=== PATIENT | male | born 1960 | race Caucasian/White ===

== ENCOUNTER 2022-06-01 10:42 | Outpatient (CLI) | payer OTHER, SELFPAY ==
[2022-06-01 17:50] LABS: Albumin* 4.8 g/dL (3.3-5.0); Chloride* 105 mmol/L (96-114)
[2022-06-01 17:51] LABS: Potassium* 4.8 mmol/L (3.6-5.1); Sodium* 139 mmol/L (135-149)
[2022-06-01 17:53] LABS: Carbon Dioxide* 29 mmol/L (20-32); Cholesterol* 197 mg/dL (90-199)
[2022-06-01 17:54] LABS: Alanine Aminotransferase* 32 U/L (4-50); Alkaline Phosphatase* 51 U/L (40-150); Aspartate Amino Transferase* 42 U/L (12-35); Bilirubin Total* 1.8 mg/dL (0.1-1.5); Blood Urea Nitrogen* 21 mg/dL (7-30); Calcium* 9.5 mg/dL (8.4-10.6); Creatinine* 1.2 mg/dL (0.5-1.5); Estimated Glomerular Filt Rate 69 ml/min; Glucose* 99 mg/dL (60-115); Total Protein* 7.7 g/dL (6.0-8.3); Triglycerides* 101 mg/dL (40-149)
[2022-06-01 17:55] LABS: HDL Cholesterol* 64 mg/dL (>=40); LDL Cholesterol Calculated 113 mg/dL (<100)
[2022-06-01 18:22] LABS: PSA Screen* 0.27 ng/mL (0.10-4.00)
== END 2022-06-01 10:43 | disposition home or self-care (01) ==
PROVIDERS: PCP Family Medicine; Visit Provider Family Medicine
DX: Z00.00 Encounter for general adult medical examination without abnormal findings (principal); E78.00 Pure hypercholesterolemia, unspecified; R79.89 Other specified abnormal findings of blood chemistry; Z12.5 Encounter for screening for malignant neoplasm of prostate
CPT/HCPCS: 80053; 80061; 84153

== ENCOUNTER 2022-06-21 07:41 | Day surgery (SDC) | payer OTHER, SELFPAY ==
[2022-06-21] VITALS (15 sets, daily range): BP systolic 101–122; BP diastolic 66–89; PULSE 63–83; RESP 12–16; TEMP 36.3–36.4; O2SAT 93–100; BMI 28.3
[2022-06-21] MEDS: SODIUM CHLORIDE 0.9 % (FLUSH) 10 ML SYRINGE IVF (08:15)
[2022-06-21] MEDS: LACTATED RINGERS 1000 ML 1,000 ML 100 ML IV ×2 (08:15→10:04)
--- NOTE | 2022-06-21 08:30 | SUR.PREOP ---
HOME COVID NEGATIVE.
[2022-06-21] MEDS: MIDAZOLAM HCL 1 MG/ML inj IVP (08:40)
[2022-06-21] MEDS: fentaNYL 100 MCG/2 ML inj IVP (08:40)
--- NOTE | 2022-06-21 08:45 | SUR.PREOP ---
TIME?OUT:?0840 PT/RN/MDA?VERIFICATION?OF?SURGICAL?SITE,?PROCEDURE,?AND?CONSENT OBTAINED?PRIOR?TO?INVASIVE?PROCEDURE.
--- NOTE | 2022-06-21 08:53 | W.ANESCHARGE ---
Anesthesia Charges Start Date/Time Anesthesia Start Date: 06/21/22 Anesthesia Start Time: 08:59 Stop Date/Time Anesthesia Stop Date: 06/21/22 Anesthesia Stop Time: 11:03 Summary Emergency: No
[2022-06-21] MEDS: EPINEPHrine 1 MG in SODIUM CHLORIDE IRRIG SOLUTION 3,000 ML 9003 MG IRRIGATION ×3 (08:59→09:30)
[2022-06-21] MEDS: CEFAZOLIN 2 GM in 0.9 % SODIUM CHLORIDE Mini-bag 100 ML IVPB (09:11)
--- NOTE | 2022-06-21 10:34 | P.ORPRC_ITS ---
Procedure Note Date of procedure: 06/21/22 Procedure: PREOPERATIVE DIAGNOSES: 1. Right shoulder rotator cuff tear-upper border subscapularis 2. Right shoulder long head of biceps high-grade partial-thickness tearing POSTOPERATIVE DIAGNOSES: 1. Right shoulder rotator cuff tear-upper border subscapularis 2. Right shoulder long head of biceps high-grade partial-thickness tearing 3. Right shoulder anterior and superior labral tearing. NAME OF OPERATION: 1. Right shoulder arthroscopic rotator cuff repair-upper border subscapularis. 2. Right shoulder open subpectoral biceps tenodesis 3. Right shoulder arthroscopic limited glenohumeral debridement SURGEON: David Ramirez MD METHODS ANALYST DATA PROCESSING: Denis Delcid PA-C. Of note, a skilled maintenance assistant was critical for this case to aide in patient positioning, suture manipulation, arm positioning, instrument positioning, and closure. ANESTHESIA: General plus preoperative supraclavicular block. EBL: Less than 50 mL IMPLANTS: Arthrex 4.75 mm BioComposite SwiveLock suture anchor (x1); 5.5 x 15 mm BioComposite tenodesis screw (x1) COMPLICATIONS: None evident INDICATIONS: The patient is a pleasant, 62-year-old male who has experienced right shoulder pain that has been increasing in recent time. Physical exam and imaging were consistent with a rotator cuff tear. Given their findings, as well as the weakness and pain, and inadequate response to nonoperative management, recommendation was made for surgery. FINDINGS: Exam under anesthesia revealed stable shoulder with excellent range of motion. The diagnostic arthroscopy revealed grade 2 chondromalacia glenoid. Relatively healthy articular cartilage humeral head. The Subscapularis tendon was torn from its upper border with mild retraction. The long head of the biceps tendon was torn high-grade partial-thickness manner in subluxed out of the bicipital groove. The superior rotator cuff tendon was found to be with only low-grade partial-thickness tearing on the deep surface. Probing did not prove poor integrity but rather had good integrity to the rest the tissue. The labrum was degeneratively frayed in the anterior and superior aspects. No loose bodies were identified within the pouch or subscapularis recess. PROCEDURE: Following a thorough discussion of risks, benefits, and alternatives, consent was obtained and the right shoulder was marked. The patient was brought to the operating room and placed supine on the operating table. Induction of anesthesia was completed after preoperative supraclavicular block was administered in preop holding. Appropriate time out was performed identifying proper patient, site, and procedure. 2 g IV Ancef was administered within 1 hour of incision preoperatively. The right upper extremity was prepped and draped in the appropriate sterile fashion using ChloraPrep prep. This was after the patient was positioned in the beach chair with their head in neutral alignment and all bony prominences well padded. The shoulder was insufflated with 20mL of normal saline via an 18g spinal needle from a posterior approach. An 11 blade skin incision allowed a blunt trochar to be inserted and diagnostic arthroscopy to be performed with the findings as noted above. An anterior portal was established with an outside in technique. This allowed the probe to be inserted and confirm the diagnostic arthroscopic findings. The shaver was then inserted and allowed debridement of the anterior and superior labrum. Following this, the upper border subscapularis was repaired after debriding the lesser tuberosity with the shaver and Offerman cautery. Subscapularis was captured in horizontal mattress fashion with a fiber tape sut ure. The tails were brought to a single anchor in the lesser tuberosity with excellent reapproximation of the subscap tendon and good excursion/tension. Thereafter, attention was turned to the open subpectoral biceps tenodesis. The biceps was tagged intra-articularly with a FiberWire suture. It was cut at the biceps origin. The stump was debrided with a torpedo shaver. We then made a 3 cm incision in the anterior shoulder in line with the axillary crease. Sharp incision through skin and blunt dissection through subcutaneous tissue allowed identification of the pectoralis muscle. This was elevated proximally. The biceps tendon and bicipital groove were readily palpable and visualized. The tendon was retrieved out of this wound and the sutures that were previously tagged were confirmed that this was indeed the tendon. The tendon was whip station proximally 3.5-4 cm from the musculotendinous junction. Excellent security of the tendon achieved. The tendon measured approximately 5 mm in diameter. A guide pin was 1st placed within the bicipital groove at the level near the superior pectoralis where a soft tissue arc could readily be palpated. A 6 mm drill was then over drilled. The wound was thoroughly irrigated normal saline and the bone removed. The biceps was then dunked with the tenodesis tower truck driver in the BioComposite tenodesis screw placed with excellent fixation of the tendon. 1 of the tails was brought through the tendon again for added security and tied. Thorough irrigation again performed. We then went into the subacromial space. A thorough bursectomy was performed and further inspection and palpation of the supraspinatus and infraspinatus was undertaken. The tendon was found to be intact without compromise. No high- grade partial-thickness or full-thickness tearing evident. No further rotator cuff tearing was needed beyond the subscapularis. The shoulder was placed through range of motion and found to be stable. The rotator cuff was re-probed and found to be stable. Instruments were removed. Excess fluid was drained, closure performed with 4-0 Monocryl and Steri-Strips. Dressings were applied. Sling was applied. The patient was awoken from anesthesia and transferred to the PACU in stable condition. A skilled maintenance assistant was critical for this case to aid in patient positioning, limb positioning, skill to manipulate arthroscopic instruments and camera, suture management, patient safety, and closure. PLAN: 1. Elbow, forearm, wrist and digit range of motion as tolerated. 2. Encouraged ice. 3. Percocet for pain as needed. 4. Sling at all times except for ROM and showering. 5. Follow up with PA visit in 1-2 weeks for wound check. Initiate physical therapy following that visit for passive range of motion. Initiate active assisted range of motion at 2 weeks. May do pendulums now.
--- NOTE | 2022-06-21 11:03 | W.ANESCHARGE ---
Anesthesia Charges Start Date/Time Anesthesia Start Date: 06/21/22 Anesthesia Start Time: 08:59 Stop Date/Time Anesthesia Stop Date: 06/21/22 Anesthesia Stop Time: 11:03
--- NOTE | 2022-06-21 12:24 | W.PM.NB ---
Nerve Block Nerve Block Time Seen by Provider: 08:50 Date Seen: 06/21/22 Type of block requested by surgeon for post-operative analgesia: supraclavicular Side: right Time out performed: Yes Verification of patient name: Yes Verification of date of : Yes Site marking: site marked Name of person performing procedure: Bernardo Assistants, if any: George Continuous monitoring Was continuous monitoring of O2 sat, B/P, quality assurance monitor, recorded every 15 minutes?: Yes Procedure Checklist: sterile prep, needles and gloves Ultrasound guided. Images saved: Yes Medications given in 5ml increments after negative aspiration: Ropivicaine %: 0.5 mL: 20 Needle gauge: 22 Decadron (mg): 10 Precedex (mcg): 25 Patient tolerated procedure well: Yes Block Charges Block Charge (with Pro Fee): Brachial Plexus Use of Ultrasound Machine for Block: Yes- US Guidance/pain block
== END 2022-06-21 12:35 | disposition home or self-care (01) ==
PROVIDERS: PCP Family Medicine; Visit Provider Orthopaedic Surgery Sports Medicine
PROC: (CPT 29805; principal; 2022-06-21 09:30)
DX: M75.101 Unspecified rotator cuff tear or rupture of right shoulder, not specified as traumatic (principal); S46.121A Laceration of muscle, fascia and tendon of long head of biceps, right arm, initial encounter; S43.431A Superior glenoid labrum lesion of right shoulder, initial encounter; G89.18 Other acute postprocedural pain
CPT/HCPCS: 29827; 29822; 23430; 01630; 64415; 76942; C1713; J0171; J0330; J0690; J1100; J2250; J2370; J2405; J2704; J2795; J3010; J7120; L3670

== ENCOUNTER 2023-11-26 10:09 | Outpatient (CLI) | payer OTHER, SELFPAY | END 2023-11-26 10:10 | disposition home or self-care (01) | PROVIDERS: PCP Family Medicine; Visit Provider Family Medicine | DX: E78.00 Pure hypercholesterolemia, unspecified (principal); R79.89 Other specified abnormal findings of blood chemistry; Z12.5 Encounter for screening for malignant neoplasm of prostate | CPT/HCPCS: 80053; 80061; G0103 ==

== ENCOUNTER 2024-06-02 08:31 | Outpatient (CLI) | payer OTHER, SELFPAY ==
--- NOTE | 2024-06-02 09:00 | CRLHL7_ITS ---
For Patients: As a result of the Century Cures Act, medical imaging exams and procedure reports are released immediately into your electronic medical record. You may view this report before your referring provider. If you have questions, please contact your health care provider. INDICATION: Congestion. History of nasal polyps. TECHNIQUE: Noncontrast CT images of the paranasal sinuses. COMPARISON: None. FINDINGS: Severe left and moderately severe right maxillary sinus mucosal thickening. Small left maxillary sinus air-fluid level. The ethmoid infundibula are opacified. Severe left and moderately severe right frontal recess opacification. There is otherwise mild frontal sinus mucosal thickening. Moderate opacification of the ethmoid air cells. [id number]-[id number] sphenoid sinus mucosal thickening. The sphenoethmoidal recesses are opacified. Mild sinusoidal nasal septal deviation. Multiple tubular opacities within nasal cavity bilaterally. The mastoid air cells are clear. IMPRESSION: 1. Multiple tubular opacities within the bilateral nasal cavity, most compatible with polyps. 2. Severe left and moderately severe right maxillary sinus mucosal thickening. Small left maxillary sinus air-fluid level can be seen in the setting of acute sinusitis. Please note that all CT scans at this facility use dose modulation, iterative reconstruction, and/or weight-based dosing when appropriate to reduce radiation dose to as low as reasonably achievable. Dictated by Isaac Lee MD @ 06/02/2024 9:07:36 AM (Electronically Signed)
== END 2024-06-02 08:32 | disposition home or self-care (01) ==
LOC: CT 08:31
PROVIDERS: PCP Family Medicine; Visit Provider Family Medicine
DX: R09.81 Nasal congestion (principal); J32.0 Chronic maxillary sinusitis; J33.9 Nasal polyp, unspecified
CPT/HCPCS: 70486

== ENCOUNTER 2024-09-12 08:14 | Day surgery (SDC) | payer OTHER, SELFPAY ==
[2024-09-12] VITALS (11 sets, daily range): BP systolic 103–132; BP diastolic 65–82; PULSE 55–66; RESP 14–20; TEMP 36.3–36.6; O2SAT 95–99; BMI 28.5
[2024-09-12] MEDS: LACTATED RINGERS 1000 ML 1,000 ML 100 ML IV (09:00)
[2024-09-12] MEDS: SODIUM CHLORIDE 0.9 % (FLUSH) 10 ML SYRINGE IVF (09:04)
[2024-09-12] MEDS: OXYMETAZOLINE 0.05% NASAL SPRAY 2 SPRAY NOSTRIL-B (09:37)
[2024-09-12] MEDS: OXYMETAZOLINE (AFRIN) SOAK 1 EACH TOPICAL (10:12)
[2024-09-12] MEDS: BUPIVACAINE 0.5%/EPINEPHRINE 0.9 MG (30.9 ML) INJECTION (10:18)
[2024-09-12] MEDS: SILVER NITRATE APPLICATOR 1 EACH STICK..EA. TOPICAL (10:18)
[2024-09-12] MEDS: MUPIROCIN 1 GM PACKET 1 APPLIC TOPICAL (10:21)
--- NOTE | 2024-09-12 10:25 | W.PM.ENTPROC ---
Procedure Note Date of procedure: 09/12/24 Procedure: Preop diagnosis bilateral nasal polyps, bilateral inferior turbinate hypertrophy, nasal obstruction Postoperative diagnosis same Procedure endoscopic bilateral nasal polypectomy, endoscopic submucous partial resection inferior turbinates Under general trach anesthesia patient was prepped draped usual fashion nose decongested injected. A stab incision was made anterior the right inferior turbinate a tunnel created the [place] dissector. The cut jake bone was outfractured and a conservative anterior submucous resection performed the small ethmoid forceps. The Coblation was used for hemostasis and to cauterize intramurally along the inferior 10%. This was repeated on the left side in identical fashion. On the right side there were polyps present on either side of the middle turbinate. These were removed with an ethmoid forceps without difficulty. There were similar findings on the left side and the polyps were removed in a similar fashion. The 0 degree scope was available for use throughout the procedure. The patient procedure well. Dissolvable packing and amend a single Merocel pack was placed on each side of the nose. The Merocel was coated in Bactroban. Blood loss was less than 10 mL. Surgeon: Hank Armstrong MD
--- NOTE | 2024-09-12 10:39 | P.ANES_ITS ---
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
--- NOTE | 2024-09-12 10:39 | W.ANESCHARGE ---
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
== END 2024-09-12 11:59 | disposition home or self-care (01) ==
LOC: OR 08:16
PROVIDERS: PCP Family Medicine; Visit Provider Otolaryngology
PROC: (CPT 31231; principal; 2024-09-12 09:45)
DX: J33.0 Polyp of nasal cavity (principal); J34.3 Hypertrophy of nasal turbinates; J34.89 Other specified disorders of nose and nasal sinuses
CPT/HCPCS: 31237; 00160; 88304; A9270; J1100; J2250; J2405; J2704; J3010; J7120

== ENCOUNTER 2024-11-11 08:58 | Outpatient (CLI) | payer OTHER, SELFPAY | END 2024-11-11 08:59 | disposition home or self-care (01) | PROVIDERS: PCP Family Medicine; Visit Provider Family Medicine | DX: Z00.00 Encounter for general adult medical examination without abnormal findings (principal); E78.00 Pure hypercholesterolemia, unspecified; L64.9 Androgenic alopecia, unspecified; K21.9 Gastro-esophageal reflux disease without esophagitis; R53.83 Other fatigue; Z12.5 Encounter for screening for malignant neoplasm of prostate | CPT/HCPCS: 80053; 80061; 84270; 84402; 84403; G0103 ==